=== PATIENT | female | born 2000 | race Hispanic/Latino ===

== ENCOUNTER 2022-01-14 07:31 | Emergency (ER) | payer OTHER ==
--- OUTSIDE RECORDS SUMMARY | 2022-01-14 07:33 | XMS REPORT | Continuity of Care Document ---
:2000 Author Organization [facility] t Address [address] [place] [address] Care Team Providers Name Role Phone Prezas DO Primary Care Physician PREZAS Attending Clinician Unavailable CHICA MEMBRENO Attending Clinician Unavailable CHICA MEMBRENO Attending Clinician Unavailable Chica Membreno MD Attending Clinician Preemily DO Attending Clinician Payers Payer Name Policy Type Policy Number Effective Date Expiration Date S taye [facility] [id number] 2021 00:00:00 [employer] [id number] 2020 2021 00:00: 00 - OUT OF STATE 00:00:00 Problems Condition Condition Condition Status Onset Resolution Last Treating Co mments Source Name Details Category Date Date Treatment Clinician Date Mild TBI Mild TBI Disease Active Kelse y (traumatic (traumatic 3-08 Se ybold brain brain 00:00: injury) injury) 00 History of History of Disease Active K elsey multiple multiple 3-08 Seybol d concussion concussion 00:00: s s 00 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 3-08 Seybol d to old to old 00:00: head head 00 trauma, trauma, right right No known No known Disease Unive rs active active ity of problems problems [facility] Allergies, Adverse Reactions, Alerts Allergy Allergy Status Severity Reaction(s) Onset Inactive Treating Comm ents Source Name Type Date Date Clinician NO KNOWN Drug Active [facility] ALLERGIE Class [facility] Social History Social Habit Start Date Stop Date Quantity Comments Source Exposure to Not sure [facility]-CoV-2 [facility] (event) [facility] Tobacco use and 2021-11-05 2021-11-05 Smokeless tobacco Ke yoandy Turner exposure 00:00:00 00:00:00 non-user Alcohol intake 2021-11-05 2021-11-05 Ex-drinker Fely magdaleno 00:00:00 00:00:00 (finding) Education 2021-11-05 2021-11-05 12 Fely Setoolisbet 00:00:00 00:00:00 Sex Ass[birth year] At [birth year] Fely akhtar 00:00:00 00:00:00 Smoking Status Start Date Stop Date Source Never smoker [facility] Medications Ordered Filled Start Stop Current Ordering Indication Dosage Frequency Signature Comments Components Source Medication Medication Date Date Medication? Clinician (SIG) Name Name Doxycycline Yes Fely Hyclate 100 3-06 Seybold MG oral 00:00: Capsule 00 methocarbam 2020-08 Yes [id number] 500mg Take 1 Univers oL 500 mg 1-08 tablet by ity o f tablet 00:00: mouth 4 [place] 00 (four) Medical times Branch daily as needed for Pain (scale 4-6). naproxen 2020-08 Yes [id number] 500mg Take 1 U nivers (NAPROSYN) 1-08 tablet by ity of 500 mg 00:00: mouth 2 [place] tablet 00 (two) Medical times Branch daily with meals. topiramate 2021- No [id number] 25mg Take 1 Univers 25 mg 8-09 03-28 6 tablet by ity of tablet 00:00: 00:00 mouth 2 [place] 00 :00 (two) Medical times Branch daily. After 1 week may take 2 PO BID. ketorolac Yes [id number] 10mg Take 1 Un margot 10 mg 7-30 tablet by ity of tablet 00:00: mouth [place] 00 every 6 Medical (six) Branch hours as needed for Pain (scale 4-6). Immunizations Ordered Immunization Filled Immunization Date Status Commen ts Source Name Name HPV 9 (Human 2017-09-08 Completed Fely Seybo ld Papillomavirus) 00:00:00 Meningococcal Vaccine- 2017-09-08 Completed Dakota pitt Seybold Conjugate(Menactra) 00:00:00 HPV 9 (Human 2017-02-04 Completed Fely Pulidoo ld Papillomavirus) 00:00:00 HPV 9 (Human 2016-11-12 Completed Fely Pulidoo ld Papillomavirus) 00:00:00 Influenza, Seasonal, 2015-06-25 Completed Genoveva ey Seybold Injectable, 00:00:00 Preservative Free Influenza, Seasonal, 2014-07-11 Completed Genoveva ey Seybold Injectable, 00:00:00 Preservative Free Influenza, Seasonal, 2013-08-09 Completed Genoveva ey Seybold Injectable 00:00:00 Meningococcal Vaccine 2013-01-26 Completed Padilla merrill Seybold Polysaccharide 00:00:00 Tdap- (Boostrix, 2013-01-26 Completed Fely rosebold Adacel) 00:00:00 Influenza, Seasonal, 2011-06-11 Completed Genoveva ey Seybold Injectable 00:00:00 Influenza, Seasonal, 2010-06-06 Completed Genoveva ey Seybold Injectable 00:00:00 Varicella Vaccine 2010-06-06 Completed Fely Seybold 00:00:00 Hepatitis A 2006-08-10 Completed Fely Quirosybol d 00:00:00 DTaP Unspecified 2005-12-30 Completed Fely Tapia eybold 00:00:00 Hepatitis A 2005-12-30 Completed Fely Quirosybol d 00:00:00 MMR- Measles, Mumps, 2005-12-30 Completed Genoveva rose Seybold Rubella 00:00:00 Pneumococcal Vaccine, 2005-12-30 Completed Padilla merrill Seybold Conjugate 13 00:00:00 Polio Vaccine 2005-12-30 Completed Fely Quirosyb old 00:00:00 HEPATITIS A- PEDI/ADOL 2005-05-02 Completed Dakota pitt Seybold 00:00:00 Pneumococcal Vaccine, 2005-04-29 Completed Padilla merrill Seybold Conjugate 7 00:00:00 DTaP Unspecified 2003-01-04 Completed Fely Tapia eybold 00:00:00 HIB- Haemophilus 2003-01-04 Completed Fely Tapia eybold Influenzae Type B 00:00:00 MMR- Measles, Mumps, 2002-09-06 Completed Genoveva rose Seybold Rubella 00:00:00 IPV- Inactivated Polio 2002-09-06 Completed Ke lsey Seybold Vaccine 00:00:00 Varicella Vaccine 2002-09-06 Completed Fely Seybold 00:00:00 DTaP Unspecified 2002-04-04 Completed Fely S eybold 00:00:00 Hepatitis B, 2002-04-04 Completed Fely Pulidoo ld Adolescent Or 00:00:00 Pediatric HIB- Haemophilus 2002-04-04 Completed Fely S eybold Influenzae Type B 00:00:00 DTaP Unspecified 2002-01-31 Completed Fely S eybold 00:00:00 HIB- Haemophilus 2002-01-31 Completed Fely S eybold Influenzae Type B 00:00:00 IPV- Inactivated Polio 2002-01-31 Completed Ke lsey Seybold Vaccine 00:00:00 DTaP Unspecified 2000 Completed Fely S eybold 00:00:00 Hepatitis B, 2001 Completed Fely Pulidoo ld Adolescent Or 00:00:00 Pediatric HIB- Haemophilus 2001 Completed Fely S eybold Influenzae Type B 00:00:00 IPV- Inactivated Polio 2001 Completed Ke lsey Seybold Vaccine 00:00:00 Hepatitis B, 2001 Completed Fely Quirosybo ld Adolescent Or 00:00:00 Pediatric Vital Signs Vital Name Observation Time Observation Value Comments Source Systolic blood 2021-11-22 20:06:00 107 mm[Hg] Univer sity of pressure [facility] Diastolic blood 2021-11-22 20:06:00 61 mm[Hg] Unive rsity of pressure [facility] Heart rate 2021-11-22 20:06:00 77 /min [facility] Body height 2021-11-22 20:06:00 170.2 cm [facility] Body weight 2021-11-22 20:06:00 64.411 kg [facility] BMI 2021-11-22 20:06:00 22.24 kg/m2 [facility] Oxygen saturation in 2021-11-22 20:06:00 99 /min [facility] blood by [facility] Pulse oximetry Branch Systolic blood 2021-11-05 14:01:00 114 mm[Hg] Fely Turner pressure Diastolic blood 2021-11-05 14:01:00 64 mm[Hg] Deanna segundo Seyblisbet pressure Heart rate 2021-11-05 14:01:00 70 /min Fely pozo Body temperature 2021-11-05 14:01:00 36.89 Cherry Genoveva Turner Respiratory rate 2021-11-05 14:01:00 20 /min Genoveva Turner Body height 2021-11-05 14:01:00 170.2 cm Fely pozo Body weight 2021-11-05 14:01:00 64.864 kg Fely pozo BMI 2021-11-05 14:01:00 22.40 kg/m2 Fely pozo Procedures This patient has no known procedures. Encounters Start End Encounter Admission Attending Care Care Encounter Source Date/Time Date/Time Type Type Clinicians Facility Department ID 2021-12-03 2021-12-03 Outpatient FELY TAN [id number] Fely 08:00:00 08:00:00 PRECIOUS Pulidool d 2021-11-28 2021-11-28 Outpatient JULIA THEODORE [facility] [id number] Univers 13:30:00 13:30:00 JULIA MEMBRENO [facility] 2021-11-22 2021-11-22 Office Temi [facility] [id number] Univers 14:40:00 15:30:55 Visit [facility] [id number] [facility] [id number] Arben as SHAY?BLEA [id number] [address] MEDICAL OFFICE [facility] 2021-11-22 2021-11-22 Outpatient FELY TAN [id number] Fely 00:00:00 00:00:00 PRECIOUS Seybol d 2021-11-22 2021-11-22 Outpatient FELY TAN [id number] Fely 00:00:00 00:00:00 PRECIOUS Seybol d 2021-11-07 2021-11-07 Outpatient FELY TAN [id number] Fely 00:00:00 00:00:00 PRECIOUS chaudhary 2021-11-05 2021-11-05 Office Maxime Tan [id number] Fely 08:00:00 08:30:00 Visit Precious Elena [id number] Se akhtar [id number] Results This patient has no known results.
[2022-01-14] MEDS ORDERED: MORPHINE 2 MG/ML SYR ONE (07:58)
[2022-01-14] MEDS ORDERED: NA CHLORIDE 0.9% 1,000 ML ONE (07:58)
[2022-01-14] MEDS ORDERED: ONDANSETRON 4 MG/2 ML VIAL ONE (07:58)
[2022-01-14 08:11] LABS: Absolute Lymphocytes (CBC) 1.2 K/uL (0.7-4.9); Lymphocytes % 22.6 % (15.3-44.8); MPV 8.1 fL (7.6-11.3)
[2022-01-14 08:28] LABS: Albumin 3.7 g/dL (3.4-5.0); Bilirubin Direct 0.3 mg/dL (0-0.2); Bilirubin Total 1.3 mg/dL (0.2-1.0); Potassium 3.2 mmol/L (3.5-5.1); Protein, Total 6.5 g/dL (6.4-8.2)
[2022-01-14 09:26] LABS: Urine Blood 3+ (Negative); Urine Glucose Negative (Negative); Urine Protein 1+ (Negative); Urine Specific Gravity 1.025 (1.005-1.030)
[2022-01-14 09:31] LABS: Urine Specific Gravity/Preg 1.025 (1.005-1.030)
--- NOTE | 2022-01-14 09:57 | RAD REPORT ---
EXAM DESCRIPTION: CT - Head C Spine Cap Edvin Zheng - 01/14/2022 9:38 am CLINICAL HISTORY: trauma COMPARISON: No comparisons TECHNIQUE: Axial [address] head images were obtained. Axial [address] cervical spine images were obtaine d with sagittal and coronal reconstruction images reviewed. During dynamic enhancement of 100mL non-i onic contrast, axial 5 mm images of the chest, abdomen and pelvis were obtained. Biphasic technique p erformed of the abdomen and pelvis. All CT scans are performed using dose optimization technique as appropriate and may include automated exposure control or mA/KV adjustment according to patient size. FINDINGS: No intracranial hemorrhage, mass or edema. No midline shift or abnormal fluid collection. Mastoid air cells and paranasal sinuses are clear. No skull fracture. CT cervical spine imaging shows normal height. There is straightening and slight reversal of the usua l cervical lordosis likely a positioning artifact. Muscle spasm would be possible as well the patient has neck symptoms. No disc space narrowing. No paraspinal mass or hematoma seen. Central canal detai l is inherently limited. Concerns for traumatic disc herniation or traumatic cord injury can be furth er addressed with MR imaging. CT chest shows no pneumothorax, pulmonary contusion or pleural fluid collection. No mediastinal hemat edith and the aorta and pulmonary arteries are unremarkable. No chest will mass or abnormal axillary fi nding. No displaced rib fracture or other significant bony finding. Prompt symmetric renal function is present. No intraparenchymal or perinephric hematoma or focal abno rmality. There is no hydronephrosis. No urinary bladder abnormality. Uterus and ovaries show no suspi cious findings. The liver, spleen, pancreas, gallbladder and biliary tree show no suspicious findings. No bowel injur y or significant finding. Free fluid in the cul de sac is well within physiologic limits. No abnormal fluid seen. No free air or pneumatosis. No significant bony finding. No significant vascular finding. IMPRESSION: No significant CT Head finding. No acute cervical spine finding. Slight reversal of the usual cervical lordosis is probably positioni ng artifact. Muscle spasm is possible if the patient has any acute neck symptoms. No significant CT Chest finding. 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 No significant finding in the abdomen or pelvis.
--- NOTE | 2022-01-14 10:32 | ER ---
Nurse's Notes [facility] Name: Mer Curtis Age: 21 yrs Sex: Female : 2000 Arrival Date: 01/14/2022 Time: 07:34 Bed 6 Private MD: Diagnosis: Low back pain;Strain of muscle and tendon of back wall of thorax;Strain of muscle and tendon of front wall of thorax;Hypokalemia;UTI/ Urinary tract infection, site not specified Presentation: 01/14 07:34 Chief complaint: EMS states: Pt brought in by [facility] c/o L sided abdominal pain, ph reports [place] and was fell from a tube that was being pulled behind a boat, also reports bright red vaginal bleeding that started today, normal menstrual cycle ended last week. Denies N/V or SOB, VSS. Coronavirus screen: Vaccine status: Patient reports being unvaccinated. Ebola Screen: No symptoms or risks identified at this time. Initial Sepsis Screen: Does the patient meet any 2 criteria? No. Patient's initial sepsis screen is negative. Does the patient have a suspected source of infection? No. Patient's initial sepsis screen is negative. Risk Assessment: Do you want to hurt yourself or someone else? Patient reports no desire to harm self or others. Onset of symptoms was January 14, 2022. 07:34 Method Of Arrival: EMS: [facility] 07:34 Acuity: KARLA 3 ph Triage Assessment: 07:39 General: Appears in no apparent distress. comfortable, slender, well groomed, Behavior ph is calm, cooperative, agitated, Denies fever, chills. Pain: Complains of pain in anterior aspect of left lateral abdomen, left upper quadrant and left lower quadrant. Neuro: [place] Agitation-Sedation Scale (RASS): 0 - Alert and Calm Level of Consciousness is awake, alert, obeys commands, Oriented to person, place, time, situation. Cardiovascular: Capillary refill < 3 seconds in bilateral fingers Patient's skin is warm and dry. Respiratory: Airway is patent Respiratory effort is even, unlabored, Respiratory pattern is regular, symmetrical, Denies shortness of breath. GI: Abdomen is flat, non-distended, Bowel sounds present X 4 quads. Abd is soft X 4 quads Abdomen is tender to palpation in left upper quadrant and left lower quadrant Reports lower abdominal pain, upper abdominal pain. Derm: Skin is intact, is healthy with good turgor, Skin is pink, warm \T\ dry. Musculoskeletal: Circulation, motion, and sensation intact. Range of motion: intact in all extremities. 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 - Social history:: Smoking status: Patient reports the use of cigarette tobacco products, denies chronic smoking, but will smoke occasionally. - Family history:: not pertinent. Screenin:45 Abuse screen: Denies threats or abuse. Denies injuries from another. Nutritional ph screening: No deficits noted. Tuberculosis screening: No symptoms or risk factors identified. Fall Risk None identified. Assessment: 08:04 General: SEE TRIAGE ASSESSMENT. ph 08:45 Reassessment: No changes from previously documented assessment. Patient and/or family ll1 updated on plan of care and expected duration. Pain level reassessed. Patient is alert, oriented x 3, equal unlabored respirations, skin warm/dry/pink. 09:45 Reassessment: No changes from previously documented assessment. Patient and/or family ll1 updated on plan of care and expected duration. Pain level reassessed. Patient states feeling better. 10:45 Reassessment: No changes from previously documented assessment. Patient and/or family ll1 updated on plan of care and expected duration. Pain level reassessed. Patient is alert, oriented x 3, equal unlabored respirations, skin warm/dry/pink. 11:33 Reassessment: Patient appears in no apparent distress at this time. Patient and/or ph family updated on plan of care and expected duration. Pain level reassessed. Patient is alert, oriented x 3, equal unlabored respirations, skin warm/dry/pink. Pt d/c home Patient states feeling better. Vital Signs: 07:34 BP 115 / 76; Pulse 68; Resp 18; Temp 97.8(O); Pulse Ox 100% on R/A; Weight 63.5 kg; ph Height 5 ft. 7 in. (170.18 cm); Pain 6/10; 08:43 BP 112 / 65; Pulse 51; Resp 16; Pulse Ox 99% on R/A; Pain 2/10; ll1 10:00 BP 111 / 66; Pulse 52; Resp 16; Pulse Ox 100% ; ll1 11:33 BP 115 / 68; Pulse 54; Resp 18; Temp 98.0; Pulse Ox 99% on R/A; ph 07:34 Body Mass Index 21.93 (63.50 kg, 170.18 cm) ph ED Course: 07:34 Patient arrived in ED. ph 07:34 Lucas Brito MD is Attending Physician. matti 07:38 Triage completed. ph 07:39 Arm band placed on Patient placed in an exam room, on a stretcher, on pulse oximetry. ph 07:58 Initial lab(s) drawn, by me, sent to lab. T\T\S collected, blood band applied to patient. ph Maintain EMS IV. Dressing intact. Good blood return noted. Site clean \T\ dry. Gauge \T\ site: 20 RAC. IV is patent, is intact, with fluids infusing freely, with good blood return, Flushed right antecubital with 5 ml normal saline. 08:00 Patient has correct armband on for positive identification. Placed in gown. Bed in low ph position. Call light in reach. Side rails up X 1. Pulse ox on. NIBP on. Door closed. Noise minimized. 08:03 Shahnaz Lee, RN is Primary Nurse. ph 09:40 CT Traumagram (Head C Spine CAP W Con) In Process Unspecified. EDMS 11:34 No provider procedures requiring assistance completed. IV discontinued, intact, ph bleeding controlled, No redness/swelling at site. Pressure dressing applied. Administered Medications: 07:58 Drug: NS 0.9% 1000 ml Route: IV; Rate: 1 bolus; Site: right antecubital; ph 09:25 Follow up: Response: No adverse reaction; IV Status: Completed infusion; IV Intake: ll1 1000ml 07:58 Drug: Zofran (Ondansetron) 4 mg Route: IVP; Site: right antecubital; ph 09:26 Follow up: Response: No adverse reaction ll1 08:00 Drug: morphine 2 mg Route: IVP; Site: right antecubital; ph 09:25 Follow up: Response: No adverse reaction; Pain is decreased; RASS: Alert and Calm (0) ll1 10:55 Drug: Rocephin (cefTRIAXone) 1 grams Route: IV; Rate: per protocol; Site: right ll1 antecubital; 11:34 Follow up: Response: No adverse reaction; IV Status: Completed infusion; IV Intake: 50mlph Medication: 07:45 VIS not applicable for this client. ph Intake: 09:25 IV: 1000ml; Total: 1000ml. ll1 11:34 IV: 50ml; Total: 1050ml. ph Outcome: 10:32 Discharge ordered by . matti 11:35 Discharged to home ambulatory. ph 11:35 Condition: good 11:35 Discharge instructions given to patient, Instructed on discharge instructions, follow up and referral plans. medication usage, Demonstrated understanding of instructions, follow-up care, medications, Prescriptions given X 3. 11:35 Patient left the ED. ph Signatures: Dispatcher [employer] EDMS Lucas Brito MD MD cha Hall, Patricia, RN RN ph Lewis, Lynsay, RN RN 1 Corrections: (The following items were deleted from the chart) 07:39 07:38 PMHx: Unable to Obtain; ph ph
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
[2022-01-14] MEDS ORDERED: NA CHLORIDE 0.9% 50 ML ONE (10:56)
[2022-01-14] MEDS ORDERED: CEFTRIAXONE 1000 MG/VIAL ONE (10:56)
[2022-01-14 11:53] VITALS: BP 115/68; TEMP 98; O2SAT 99
== END 2022-01-14 11:35 | disposition home or self-care (01) ==
LOC: ER 07:31
DX: S29.012A Strain of muscle and tendon of back wall of thorax, initial encounter (principal); S29.011A Strain of muscle and tendon of front wall of thorax, initial encounter; N39.0 Urinary tract infection, site not specified; E87.6 Hypokalemia; F17.210 Nicotine dependence, cigarettes, uncomplicated
CPT/HCPCS: 85025; 80048; 36415; 86900; 86850; 81025; 86901; 80076; 81003; 83690; 70450; 72125; 71260; 74177; Q9967; J2270; J7030; J2405; 96361; 96365; 96375; 99284